=== PATIENT | female | born 1935 | race Caucasian/White ===

== ENCOUNTER 2017-12-22 10:06 | Outpatient (CLI) | payer MEDICARE, OTHER | END 2017-12-22 10:07 | disposition home or self-care (01) | LOC: BICMAMMO 10:06 | PROVIDERS: ATTEND Internal Medicine Endocrinology, Diabetes & Metabolism | DX: M81.0 Age-related osteoporosis without current pathological fracture (principal); M85.88 Other specified disorders of bone density and structure, other site | CPT/HCPCS: 77080 ==

== ENCOUNTER 2019-01-03 08:51 | Emergency (ER) | payer MEDICARE, OTHER ==
[2019-01-03] MEDS ORDERED: diphenhydrAMINE 25 MG CAP ONE (10:34)
[2019-01-03] MEDS ORDERED: predniSONE 20 MG TAB ONE (10:34)
== END 2019-01-03 10:44 | disposition home or self-care (01) ==
LOC: ERS 08:51
DX: L30.9 Dermatitis, unspecified (principal); I10 Essential (primary) hypertension; Z87.891 Personal history of nicotine dependence; Z79.899 Other long term (current) drug therapy
CPT/HCPCS: 99282; J7512; Q0163

== ENCOUNTER 2022-07-16 12:47 | Inpatient (IN) | payer MEDICARE ==
[2022-07-16 13:40] LABS: #Lymphocytes 0.9 thou/uL (1.20-3.40); #Monocytes 1.1 thou/uL (0.11-0.59); #Neutrophils 9.2 thou/uL (1.40-6.50); %Lymphocytes 7.7 % (21.0-51.0); %Monocytes 9.5 % (0.0-10.0); %Neutrophils 82.8 % (42.0-75.0); Hemoglobin 16.1 g/dL (12.0-16.0); Mean Corpuscular HGB CONC 30.8 g/dL (32.0-36.0); Mean Corpuscular Hemoglobin 27.6 pg (27.0-31.0); Mean Corpuscular Volume 89.6 fl (78.0-98.0); Mean Platelet Volume 10.5 fL (7.4-10.4); Platelet Count 173 10x3/uL (130-400); RBC Distribution Width 17.9 % (11.5-14.5); Red Blood Cell (RBC) Count 5.83 mill/uL (4.20-5.40); White Blood Cell (WBC) Count 11.1 10x3/uL (4.8-10.8)
[2022-07-16 13:46] LABS: Bacteria/HPF None Seen HPF (None Seen); Bilirubin 1+ (Negative); Blood, Urine Trace (Negative); Clarity Clear (Clear); Glucose, Urine (Dipstick) Normal (Negative); Ketone, Urine 60 mg/dL (Negative); Leukocyte Negative Leu/uL (Negative); Nitrite Negative (Negative); Protein, Urine (Dipstick) 100 mg/dL (Neg-Trace); RBC/HPF 0-3 HPF (0-3); Specific Gravity, Urine 1.025 (1.002-1.036); Squamous Epithelial 0-3 HPF (0-3); WBC/HPF 0-3 HPF (0-3)
[2022-07-16 14:51] LABS: Albumin 3.9 g/dL (3.4-4.8)
[2022-07-16 14:52] LABS: Chloride 105 mmol/L (98-107); Potassium 4.8 mmol/L (3.5-5.1); Sodium 143 mmol/L (136-145)
[2022-07-16 14:53] LABS: Calcium 9.5 mg/dL (7.8-10.44); Glucose 120 mg/dL (83-110)
[2022-07-16 14:54] LABS: Protein, Total 6.9 g/dL (5.8-8.1)
[2022-07-16 14:55] LABS: Anion Gap 32 mmol/L (10-20); Bilirubin, Total 1.9 mg/dL (0.2-1.2); Carbon Dioxide 11 mmol/L (23-31)
[2022-07-16 14:56] LABS: Alkaline Phosphatase 66 U/L (40-110)
[2022-07-16 14:57] LABS: Calc. Creatinine Clearance 0 mL/min (70-130); Estimated GFR 62
[2022-07-16 14:58] LABS: BUN (Urea Nitrogen) 27 mg/dL (9.8-20.1)
[2022-07-16 14:59] LABS: ALT (SGPT) 16 U/L (8-55); AST (SGOT) 35 U/L (5-34)
[2022-07-16] MEDS ORDERED: cefTRIAXone\\ROCEPHIN 2 GM VIAL ONE (15:26)
[2022-07-16] MEDS ORDERED: Azithromycin 500 MG VIAL ONE ×2 (15:26→15:30)
[2022-07-16] MEDS ORDERED: VANCOMYCIN 1.25 GM/250 ML BAG 1.25 GM in Premix Bag 1 BAG IVPB SCH (16:15)
[2022-07-16] MEDS ORDERED: Acetaminophen 325 MG TAB PO PRN (16:34)
[2022-07-16] MEDS ORDERED: Ondansetron PF 4 MG/2 ML Vial IVP PRN (16:34)
[2022-07-16] MEDS ORDERED: Calcium Carbonate 500 MG ChewTAB PO PRN (16:34)
[2022-07-16 17:30] LABS: Lactic Acid 2.9 mmol/L (0.5-2.2)
[2022-07-16 18:28] LABS: CKMB 17.8 ng/mL (0-6.6)
[2022-07-16] MEDS ORDERED: Aspirin Chewable 81 MG TAB ONE (18:43)
[2022-07-16] MEDS ORDERED: Heparin 5,000 UNITS/ML VIAL SC SCH (21:00)
[2022-07-16 22:56] LABS: Troponin I 2.105 ng/mL (< 0.028)
[2022-07-17 04:27] LABS: #Lymphocytes 0.7 thou/uL (1.20-3.40); #Monocytes 1.2 thou/uL (0.11-0.59); #Neutrophils 7.4 thou/uL (1.40-6.50); %Basophils 0.1 % (0.0-1.0); %Lymphocytes 7.6 % (21.0-51.0); %Monocytes 12.6 % (0.0-10.0); %Neutrophils 79.7 % (42.0-75.0); Hemoglobin 14.4 g/dL (12.0-16.0); Mean Corpuscular HGB CONC 32.2 g/dL (32.0-36.0); Mean Corpuscular Hemoglobin 28.9 pg (27.0-31.0); Mean Corpuscular Volume 89.8 fl (78.0-98.0); Mean Platelet Volume 10.1 fL (7.4-10.4); Platelet Count 143 10x3/uL (130-400); RBC Distribution Width 17.6 % (11.5-14.5); Red Blood Cell (RBC) Count 4.98 mill/uL (4.20-5.40); White Blood Cell (WBC) Count 9.2 10x3/uL (4.8-10.8)
[2022-07-17 04:53] LABS: ALT (SGPT) 15 U/L (8-55); AST (SGOT) 25 U/L (5-34); Albumin 3.8 g/dL (3.4-4.8); Alkaline Phosphatase 55 U/L (40-110); Anion Gap 22 mmol/L (10-20); BUN (Urea Nitrogen) 33 mg/dL (9.8-20.1); Bilirubin, Total 1.1 mg/dL (0.2-1.2); CK (CPK) 154 U/L (29-168); Calc. Creatinine Clearance 23 mL/min (70-130); Calcium 9.6 mg/dL (7.8-10.44); Carbon Dioxide 20 mmol/L (23-31); Chloride 107 mmol/L (98-107); Estimated GFR 39; Globulin 2.5 g/dL (2.4-3.5); Glucose 105 mg/dL (83-110); Magnesium 2.1 mg/dL (1.6-2.6); Potassium 3.8 mmol/L (3.5-5.1); Protein, Total 6.3 g/dL (5.8-8.1); Sodium 145 mmol/L (136-145)
[2022-07-17 05:38] LABS: Troponin I 2.163 ng/mL (< 0.028)
[2022-07-17] MEDS ORDERED: Furosemide 20 MG/2 ML VIAL SLOW IVP SCH (09:15)
[2022-07-17] MEDS ORDERED: Aspirin 81 mg Enteric Coated Tablet PO SCH (13:15)
[2022-07-17] MEDS: Furosemide 20 MG/2 ML VIAL SLOW IVP SCH (13:25)
[2022-07-17] MEDS: cefTRIAXone\\ROCEPHIN 1 GM in Sodium Chloride 0.9% 100 ML IVPB SCH (14:35)
[2022-07-17] MEDS: Azithromycin 500 MG in Sodium Chloride 0.9% 250 ML 250 ML IVPB SCH (16:10)
[2022-07-18] MEDS: Furosemide 20 MG/2 ML VIAL SLOW IVP SCH (06:06)
[2022-07-18 08:30] LABS: #Lymphocytes 0.5 thou/uL (1.20-3.40); #Neutrophils 11.7 thou/uL (1.40-6.50); %Basophils 0.1 % (0.0-1.0); %Eosinophils 0.1 % (0.0-10.0); %Lymphocytes 3.6 % (21.0-51.0); %Monocytes 7.8 % (0.0-10.0); %Neutrophils 88.5 % (42.0-75.0); Hemoglobin 14.9 g/dL (12.0-16.0); Mean Corpuscular HGB CONC 30.7 g/dL (32.0-36.0); Mean Corpuscular Hemoglobin 27.7 pg (27.0-31.0); Mean Corpuscular Volume 90.4 fl (78.0-98.0); Mean Platelet Volume 10.5 fL (7.4-10.4); Platelet Count 142 10x3/uL (130-400); RBC Distribution Width 17.6 % (11.5-14.5); Red Blood Cell (RBC) Count 5.37 mill/uL (4.20-5.40); White Blood Cell (WBC) Count 13.2 10x3/uL (4.8-10.8)
[2022-07-18 08:38] LABS: Hemoglobin A1c 5.2 % (4.0-6.0)
[2022-07-18 08:53] LABS: ALT (SGPT) 20 U/L (8-55); AST (SGOT) 22 U/L (5-34); Albumin 3.8 g/dL (3.4-4.8); Alkaline Phosphatase 58 U/L (40-110); Anion Gap 24 mmol/L (10-20); BUN (Urea Nitrogen) 44 mg/dL (9.8-20.1); Bilirubin, Total 1.4 mg/dL (0.2-1.2); Calc. Creatinine Clearance 23 mL/min (70-130); Calcium 9.8 mg/dL (7.8-10.44); Carbon Dioxide 18 mmol/L (23-31); Cardiac Risk 2.8 (Less than 4.5); Chloride 107 mmol/L (98-107); Cholesterol 150 mg/dl (< 200 Desired); Estimated GFR 39; Globulin 2.8 g/dL (2.4-3.5); Glucose 151 mg/dL (83-110); HDL Cholesterol 54 mg/dL (>60 Neg Risk); LDL Cholesterol, Calculated 72 mg/dL; Potassium 3.2 mmol/L (3.5-5.1); Protein, Total 6.6 g/dL (5.8-8.1); Sodium 146 mmol/L (136-145); Triglycerides 120 mg/dL (Less than 150)
[2022-07-18] MEDS: Aspirin 81 mg Enteric Coated Tablet PO SCH (09:12)
[2022-07-18] MEDS ORDERED: Potassium Chloride 20 MEQ TAB PO SCH (09:30)
[2022-07-18] MEDS: Potassium Chloride 20 MEQ in Premix Bag 1 BAG IVPB SCH ×2 (09:49→12:13)
[2022-07-18] MEDS: cefTRIAXone\\ROCEPHIN 1 GM in Sodium Chloride 0.9% 100 ML IVPB SCH (14:13)
[2022-07-18] MEDS: Azithromycin 500 MG in Sodium Chloride 0.9% 250 ML 250 ML IVPB SCH (15:38)
[2022-07-18 16:12] LABS: Bacteria/HPF None Seen HPF (None Seen); Bilirubin Negative (Negative); Blood, Urine 2+ (Negative); CAUTI Indications for Culture Dysuria,urgency,freq; Clarity Turbid (Clear); Glucose, Urine (Dipstick) Normal (Negative); Ketone, Urine Trace mg/dL (Negative); Leukocyte Negative Leu/uL (Negative); Nitrite Negative (Negative); Protein, Urine (Dipstick) 30 mg/dL (Neg-Trace); RBC/HPF 21-50 HPF (0-3); Renal Epithelial 0-3 HPF (None Seen); Specific Gravity, Urine 1.016 (1.002-1.036); Squamous Epithelial 0-3 HPF (0-3); Urobilinogen Normal mg/dL (Less than 2)
[2022-07-18 16:15] LABS: Urine Culture Reflex Yes Yes
[2022-07-19 04:59] LABS: Hemoglobin 15.2 g/dL (12.0-16.0); Mean Corpuscular HGB CONC 31.9 g/dL (32.0-36.0); Mean Corpuscular Hemoglobin 28.5 pg (27.0-31.0); Mean Corpuscular Volume 89.4 fl (78.0-98.0); Mean Platelet Volume 10.9 fL (7.4-10.4); Platelet Count 149 10x3/uL (130-400); RBC Distribution Width 17.6 % (11.5-14.5); Red Blood Cell (RBC) Count 5.34 mill/uL (4.20-5.40); White Blood Cell (WBC) Count 13.2 10x3/uL (4.8-10.8)
[2022-07-19 05:18] LABS: Anion Gap 24 mmol/L (10-20); BUN (Urea Nitrogen) 55 mg/dL (9.8-20.1); Calc. Creatinine Clearance 20 mL/min (70-130); Calcium 9.3 mg/dL (7.8-10.44); Carbon Dioxide 16 mmol/L (23-31); Chloride 111 mmol/L (98-107); Estimated GFR 32; Glucose 123 mg/dL (83-110); Magnesium 2.1 mg/dL (1.6-2.6); Potassium 4.3 mmol/L (3.5-5.1); Sodium 147 mmol/L (136-145)
[2022-07-19 06:24] LABS: Anisocytosis SLIGHT = 6-15 cells (100X) (0-5/hpf); Band 1 % (5-11); Large Platelets SLIGHT; Lymphocytes 3 % (21-51); MDiff Complete? YES; Monocytes 3 % (0-10); Neutrophil 93 % (42-75); Platelet Morphology Comment Appears Adequate; Polychromasia SLIGHT = 2-3 cells (100X) (0-2/hpf)
[2022-07-19] MEDS: Aspirin 81 mg Enteric Coated Tablet PO SCH (09:17)
[2022-07-19] MEDS: cefTRIAXone\\ROCEPHIN 1 GM in Sodium Chloride 0.9% 100 ML IVPB SCH (14:58)
[2022-07-19] MEDS: Azithromycin 500 MG in Sodium Chloride 0.9% 250 ML 250 ML IVPB SCH (18:24)
[2022-07-19] MEDS ORDERED: FLU VACC QS2022-23(65YR UP)/PF 240 MCG/0.7 ML SYRINGE IM ONE (22:00)
[2022-07-20 04:52] LABS: #Lymphocytes 0.6 thou/uL (1.20-3.40); #Monocytes 0.3 thou/uL (0.11-0.59); #Neutrophils 8.3 thou/uL (1.40-6.50); %Basophils 0.3 % (0.0-1.0); %Eosinophils 0.1 % (0.0-10.0); %Lymphocytes 6.2 % (21.0-51.0); %Monocytes 3.4 % (0.0-10.0); %Neutrophils 90.1 % (42.0-75.0); Hemoglobin 13.7 g/dL (12.0-16.0); Mean Corpuscular HGB CONC 31.4 g/dL (32.0-36.0); Mean Corpuscular Hemoglobin 28.9 pg (27.0-31.0); Mean Corpuscular Volume 91.9 fl (78.0-98.0); Mean Platelet Volume 11.3 fL (7.4-10.4); Platelet Count 125 10x3/uL (130-400); RBC Distribution Width 17.8 % (11.5-14.5); Red Blood Cell (RBC) Count 4.75 mill/uL (4.20-5.40); White Blood Cell (WBC) Count 9.2 10x3/uL (4.8-10.8)
[2022-07-20 05:18] LABS: ALT (SGPT) 174 U/L (8-55); AST (SGOT) 316 U/L (5-34); Albumin 3.1 g/dL (3.4-4.8); Alkaline Phosphatase 54 U/L (40-110); Anion Gap 20 mmol/L (10-20); BUN (Urea Nitrogen) 78 mg/dL (9.8-20.1); Bilirubin, Total 1.2 mg/dL (0.2-1.2); Calc. Creatinine Clearance 14 mL/min (70-130); Calcium 8.7 mg/dL (7.8-10.44); Carbon Dioxide 20 mmol/L (23-31); Chloride 116 mmol/L (98-107); Estimated GFR 21; Globulin 2.2 g/dL (2.4-3.5); Glucose 188 mg/dL (83-110); Magnesium 2.1 mg/dL (1.6-2.6); Phosphorus 3.8 mg/dL (2.3-4.7); Potassium 3.9 mmol/L (3.5-5.1); Protein, Total 5.3 g/dL (5.8-8.1)
[2022-07-20 05:22] LABS: Sodium 152 mmol/L (136-145)
[2022-07-20] MEDS: Aspirin 81 mg Enteric Coated Tablet PO SCH (08:59)
[2022-07-20] MEDS ORDERED: Dextrose 5% in Water 1,000 ML IV SCH (09:15)
[2022-07-20 14:25] LABS: Anion Gap 14 mmol/L (10-20); BUN (Urea Nitrogen) 81 mg/dL (9.8-20.1); Calc. Creatinine Clearance 17 mL/min (70-130); Calcium 8.4 mg/dL (7.8-10.44); Carbon Dioxide 22 mmol/L (23-31); Chloride 114 mmol/L (98-107); Estimated GFR 28; Glucose 218 mg/dL (83-110); Potassium 3.1 mmol/L (3.5-5.1); Sodium 147 mmol/L (136-145)
[2022-07-20] MEDS: cefTRIAXone\\ROCEPHIN 1 GM in Sodium Chloride 0.9% 100 ML IVPB SCH (16:14)
[2022-07-20] MEDS: Potassium Chloride 10 MEQ in Premix Bag 1 BAG IVPB SCH ×3 (16:16→18:42)
[2022-07-20 19:05] LABS: Anion Gap 15 mmol/L (10-20); BUN (Urea Nitrogen) 78 mg/dL (9.8-20.1); Calc. Creatinine Clearance 19 mL/min (70-130); Calcium 8.5 mg/dL (7.8-10.44); Carbon Dioxide 24 mmol/L (23-31); Chloride 113 mmol/L (98-107); Estimated GFR 32; Glucose 214 mg/dL (83-110); Potassium 3.3 mmol/L (3.5-5.1); Sodium 149 mmol/L (136-145)
[2022-07-20] MEDS: Azithromycin 500 MG in Sodium Chloride 0.9% 250 ML 250 ML IVPB SCH (19:41)
[2022-07-20] MEDS ORDERED: Potassium Chloride 20 MEQ in Premix Bag 1 BAG IVPB SCH (20:15)
[2022-07-21] MEDS ORDERED: Digoxin 0.5 MG/2 ML AMP SLOW IVP SCH (03:30)
[2022-07-21 05:15] LABS: Hemoglobin 15.3 g/dL (12.0-16.0); Mean Corpuscular HGB CONC 30.8 g/dL (32.0-36.0); Mean Corpuscular Hemoglobin 28.4 pg (27.0-31.0); Mean Corpuscular Volume 92.2 fl (78.0-98.0); White Blood Cell (WBC) Count 13.4 10x3/uL (4.8-10.8)
[2022-07-21 05:28] LABS: ALT (SGPT) 160 U/L (8-55); AST (SGOT) 105 U/L (5-34); Albumin 2.6 g/dL (3.4-4.8); Alkaline Phosphatase 90 U/L (40-110); Anion Gap 13 mmol/L (10-20); BUN (Urea Nitrogen) 74 mg/dL (9.8-20.1); Bilirubin, Total 0.9 mg/dL (0.2-1.2); Calc. Creatinine Clearance 24 mL/min (70-130); Calcium 8.7 mg/dL (7.8-10.44); Carbon Dioxide 25 mmol/L (23-31); Chloride 114 mmol/L (98-107); Estimated GFR 40; Globulin 2.4 g/dL (2.4-3.5); Glucose 202 mg/dL (83-110); Magnesium 1.9 mg/dL (1.6-2.6); Potassium 3.7 mmol/L (3.5-5.1); Sodium 148 mmol/L (136-145)
[2022-07-21 06:02] LABS: Anisocytosis SLIGHT = 6-15 cells (100X) (0-5/hpf); Large Platelets SLIGHT; Lymphocytes 4 % (21-51); MDiff Complete? YES; Mean Platelet Volume 12.2 fL (7.4-10.4); Monocytes 2 % (0-10); Neutrophil 94 % (42-75); Nucleated RBC 1 % (0); Ovalocytes SLIGHT = 2-5 cells (100X) (0-1/hpf); Platelet Count 90 10x3/uL (130-400); Platelet Morphology Comment Appears Decreased; Polychromasia SLIGHT = 2-3 cells (100X) (0-2/hpf)
[2022-07-21 11:46] VITALS: BP 90/52; TEMP 98.6
[2022-07-21] MEDS: Aspirin 81 mg Enteric Coated Tablet PO SCH (12:26)
[2022-07-21 14:01] VITALS: BMI 17.6
[2022-07-22] MEDS ORDERED: Digoxin 0.125 MG TAB PO SCH (09:00)
== END 2022-07-21 15:42 | disposition hospice, inpatient (51) | DRG 280 ==
LOC: ERS 12:47 → SUATTDRO 12:47 → OBSVTOIN 16:39 → 2NO 16:39
PROVIDERS: ADMIT Internal Medicine; ATTEND Internal Medicine
DX: I13.0 Hypertensive heart and chronic kidney disease with heart failure and stage 1 through stage 4 chronic kidney disease, or unspecified chronic kidney disease (principal); I21.4 Non-ST elevation (NSTEMI) myocardial infarction; E43 Unspecified severe protein-calorie malnutrition; G93.41 Metabolic encephalopathy; I50.23 Acute on chronic systolic (congestive) heart failure; J15.9 Unspecified bacterial pneumonia; E87.20 Acidosis, unspecified; E87.0 Hyperosmolality and hypernatremia; Z68.1 Body mass index [BMI] 19.9 or less, adult; R64 Cachexia; N17.9 Acute kidney failure, unspecified; Z66 Do not resuscitate; Z51.5 Encounter for palliative care; N18.30 Chronic kidney disease, stage 3 unspecified; E87.6 Hypokalemia
CPT/HCPCS: 36415; 36416; 51701; 70450; 71045; 71250; 74018; 80048; 80053; 80061; 81001; 81003; 81015; 82550; 82553; 83036; 83605; 83735; 83880; 84100; 84134; 84145; 84484; 85025; 86140; 87040; 87086; 93005; 93306; 96365; 96366; 96367; 96368; J0456; J0696; J1160; J1650; J1940; J3370; J3480; J3490; J7050; J7070; U0003; U0005

== ENCOUNTER 2022-07-21 15:54 | Inpatient (IN) | payer OTHER ==
[2022-07-21] MEDS ORDERED: Scopolamine 1.5 mg/72 hour Patch TOP PRN (16:15)
[2022-07-21] MEDS ORDERED: Acetaminophen 650 MG Suppository PR PRN (16:15)
[2022-07-21] MEDS ORDERED: Lorazepam 2 MG/ML VIAL SLOW IVP PRN (16:15)
[2022-07-21] MEDS ORDERED: Haloperidol Lactate 5 MG/ML VIAL SLOW IVP PRN (16:15)
[2022-07-21] MEDS ORDERED: Ondansetron PF 4 MG/2 ML Vial IVP PRN (16:15)
[2022-07-21] MEDS ORDERED: Morphine 4 MG/ML VIAL SLOW IVP PRN (16:16)
[2022-07-21] MEDS ORDERED: Glycopyrrolate 0.4 MG/ 2 ML VIAL SLOW IVP PRN (16:16)
[2022-07-21] MEDS ORDERED: Bisacodyl 10 MG SUPP PR PRN (16:17)
[2022-07-22 03:17] VITALS: BMI 17.6
[2022-07-22 09:43] VITALS: BP 102/57; TEMP 97.7
== END 2022-07-22 14:25 | disposition expired | DRG 951 ==
LOC: 2NO 15:54 → MSONC 18:36
PROVIDERS: ADMIT Family Medicine; ATTEND Family Medicine
DX: Z51.5 Encounter for palliative care (principal); J81.0 Acute pulmonary edema; J18.9 Pneumonia, unspecified organism; I22.9 Subsequent ST elevation (STEMI) myocardial infarction of unspecified site; I50.9 Heart failure, unspecified; I25.2 Old myocardial infarction
CPT/HCPCS: J2060